=== PATIENT | female | born 1960 | race Caucasian/White ===

== ENCOUNTER 2020-04-06 14:21 | Emergency (ER) | payer OTHER ==
[~2020-04-06] VITALS: Ht 165.1 cm; Wt 59.0 kg
[2020-04-06] MEDS ORDERED: NOHOMEMEDICATIONS (14:39)
[2020-04-06] MEDS ORDERED: LORCET 5-325 M1 EACH PO (15:29)
[2020-04-06 16:48] VITALS: BP 147/65
== END 2020-04-06 16:48 | disposition home or self-care (01) ==
LOC: ER 14:21
DX: S80.12XA Contusion of left lower leg, initial encounter (principal); W17.2XXA Fall into hole, initial encounter; Y93.89 Activity, other specified; Y92.89 Other specified places as the place of occurrence of the external cause; Y99.8 Other external cause status